=== PATIENT | male | born 2000 | race Caucasian/White ===

== ENCOUNTER 2018-03-29 11:55 | Emergency (ER) | payer BC, OTHER ==
[2018-03-29 12:15] VITALS: BP 133/71
--- NOTE | 2018-03-29 13:02 | UC ---
General HPI - HPI Summary HPI Summary: pt is c/o "recurrent chest pains" for 3-4 weeks. it occurs at random but he notes it most with laughing. he describes it as "sharp" and brief. he denies any hx of illness or injury. there is no associated fever, sweating, sob or exertional component. he denies any abdominal pain. no travel hx. there is no family hx of aneurysms. he denies any drug use. no current s/s's at time of exam. - History of Current Complaint Chief Complaint: UCChestPain Stated Complaint: RECURRING CHEST PAINS X 2 WKS Time Seen by Provider: 03/29/18 12:55 Hx Obtained From: Patient, Family/Sales Promotion Director Pain Intensity: 1 Associated Signs & Symptoms: Negative: Fever - Allergy/Home Medications Allergies/Adverse Reactions: Allergies Allergy/AdvReac Type Severity Reaction Status Date / Time amoxicillin Allergy Hives Verified 03/29/18 12:11 bee venom protein (honey bee) Allergy Hives and Verified 03/29/18 12:11 Swelling Sulfa (Sulfonamide Allergy Hives Verified 03/29/18 12:11 Antibiotics) Home Medications: Home Medications EPINEPHrine [Epipen 2-Derek] 0.3 mg IM SEE INSTRUCTIONS PRN 03/29/18 [History Confirmed 03/29/18] PMH/Surg Hx/FS Hx/Imm Hx Previously Healthy: Yes - Surgical History Surgical History: None - Family History Known Family History: Positive: Hypertension - Social History Occupation: Employed Part-time, Student Lives: With Family Alcohol Use: Rare Substance Use Type: None Smoking Status (MU): Never Smoked Tobacco - Immunization History Vaccination Up to Date: Yes Review of Systems Constitutional: Negative Skin: Negative Eyes: Negative ENT: Negative Respiratory: Negative Cardiovascular: Chest Pain Gastrointestinal: Negative Genitourinary: Negative Motor: Negative Neurovascular: Negative Musculoskeletal: Negative Neurological: Negative Psychological: Negative Is Patient Immunocompromised?: No All Other Systems Reviewed And Are Negative: Yes Physical Exam Triage Information Reviewed: Yes Appearance: Well-Appearing Vital Signs: Initial Vital Signs Temp 97.7 F 03/29/18 12:08 Pulse 62 03/29/18 12:08 Resp 16 03/29/18 12:08 BP 133/71 03/29/18 12:08 Pulse Ox 100 03/29/18 12:08 Vital Signs Reviewed: Yes Eyes: Positive: Conjunctiva Clear ENT: Positive: Pharynx normal, TMs normal. Negative: Nasal congestion, Nasal drainage Neck: Positive: Supple, Nontender, No Lymphadenopathy Respiratory: Positive: Chest non-tender, Lungs clear, Normal breath sounds, No respiratory distress Cardiovascular: Positive: RRR, No Murmur, Pulses Normal Abdomen Description: Positive: Nontender, No Organomegaly, Soft Bowel Sounds: Positive: Present Musculoskeletal: Positive: ROM Intact, No Edema, Other: - No calf tenderness or cords. Neurological: Positive: Alert Psychological: Positive: Age Appropriate Behavior Skin Exam: Normal Skin: Negative: rashes Diagnostics - Radiology No standard instances Radiology Interpretation Completed By: Radiologist - CXR=IMPRESSION: NO EVIDENCE FOR ACTIVE CARDIOPULMONARY DISEASE. - EKG Cardiac Rate: Bradycardia Cardiac Rhythm: Sinus: Normal Ectopy: None ST Segment: Normal Course/Dx - Course Course Of Treatment: EKG AND CXR ARE UNREMARKABLE. NO RISK FOR PREMATURE ACS. NO CONCERN FOR PE AND NO CM, INFILTRATE OR PTX ON CXR. NO C/W PERICARDIAITIS. NEED FOR CLOSE F/U PCP AND GO TO ER FOR ANY WORSENING. - Differential Dx - Multi-Symptom Provider Diagnoses: Episodic chest pain Discharge - Sign-Out/Discharge Documenting (check all that apply): Patient Departure All imaging exams completed and their final reports reviewed: Yes - Discharge Plan Condition: Stable Disposition: HOME Patient Education Materials: Chest Pain (ED) Referrals: Negro Azul MD [Primary Care Provider] - As Soon As Possible Additional Instructions: GO TO THE ER FOR ANY WORSENING - Billing Disposition and Condition Condition: STABLE Disposition: Home - Attestation Statements Provider Attestation: Per institutional requirements, I have reviewed the chart, however, I was not consulted specifically or made aware of this patient by the midlevel provider. I did not personally evaluate, interact with , or disposition this patient.
--- NOTE | 2018-03-29 13:39 | RAD ---
INDICATION: Sharp chest pain. COMPARISON: There are no relevant prior studies available for comparison. TECHNIQUE: Dual-energy PA and lateral views of the chest were obtained. FINDINGS: The heart is within normal limits in size. Mediastinal and hilar contours appear within normal limits. The lungs are clear. No pneumothorax or pleural effusion is seen. IMPRESSION: NO EVIDENCE FOR ACTIVE CARDIOPULMONARY DISEASE.
== END 2018-03-29 14:08 | disposition home or self-care (01) ==
LOC: UCCORT 11:55
DX: R07.89 Other chest pain (principal); R00.1 Bradycardia, unspecified; Z88.1 Allergy status to other antibiotic agents; Z91.030 Bee allergy status
CPT/HCPCS: 71046; 93005; 99211; G0463

== ENCOUNTER 2018-06-13 10:03 | Emergency (ER) | payer BC ==
[2018-06-13 11:02] VITALS: BP 134/69
--- NOTE | 2018-06-13 11:36 | UC ---
Throat Pain/Nasal Camacho HPI - HPI Summary HPI Summary: Pt presents c/o sudden onset of ST and nasal congestion x 3 days. - History of Current Complaint Chief Complaint: UCGeneralIllness Stated Complaint: ST Time Seen by Provider: 06/13/18 11:14 Hx Obtained From: Patient Onset/Duration: Sudden Onset, Lasting Days, Still Present Severity: Mild Pain Intensity: 4 Cough: None Associated Signs & Symptoms: Positive: Dysphagia - Epiglottits Risk Factors Epiglottis Risk Factors: Sudden Onset - Allergies/Home Medications Allergies/Adverse Reactions: Allergies Allergy/AdvReac Type Severity Reaction Status Date / Time amoxicillin Allergy Hives Verified 03/29/18 12:11 bee venom protein (honey bee) Allergy Hives and Verified 03/29/18 12:11 Swelling Sulfa (Sulfonamide Allergy Hives Verified 03/29/18 12:11 Antibiotics) PMH/Surg Hx/FS Hx/Imm Hx Previously Healthy: Yes - Surgical History Surgical History: None - Family History Known Family History: Positive: Hypertension - Social History Occupation: Student Lives: With Family Alcohol Use: Rare Substance Use Type: None Smoking Status (MU): Never Smoked Tobacco Have You Smoked in the Last Year: No - Immunization History Vaccination Up to Date: Yes Review of Systems All Other Systems Reviewed And Are Negative: Yes Constitutional: Positive: Fever - subjective, Fatigue Skin: Positive: Negative ENT: Positive: Sore Throat, Sinus Congestion Respiratory: Positive: Negative Cardiovascular: Positive: Negative Gastrointestinal: Positive: Negative Genitourinary: Positive: Negative Motor: Positive: Negative Neurovascular: Positive: Negative Musculoskeletal: Positive: Negative Neurological: Positive: Negative Psychological: Positive: Negative Is Patient Immunocompromised?: No Physical Exam Triage Information Reviewed: Yes Appearance: Ill-Appearing Vital Signs: Initial Vital Signs Temp 98.0 F 06/13/18 10:59 Pulse 80 06/13/18 10:59 Resp 16 06/13/18 10:59 BP 134/69 06/13/18 10:59 Pulse Ox 100 06/13/18 10:59 Vital Signs Reviewed: Yes Eye Exam: Normal ENT: Positive: Pharyngeal erythema Dental Exam: Normal Neck exam: Normal Respiratory Exam: Normal Cardiovascular Exam: Normal Musculoskeletal Exam: Normal Neurological Exam: Normal Psychological Exam: Normal Skin Exam: Normal Diagnostics - Laboratory Diagnostic Studies Completed/Ordered: rapid flu: negative. rapid strep: negative. Pt refused mono testing Throat Pain/Nasal Course/Dx - Differential Dx/Diagnosis Differential Diagnosis/HQI/PQRI: Mononucleosis, Pharyngitis, Tonsillitis Provider Diagnosis: Viral syndrome, Sore throat Discharge - Sign-Out/Discharge Documenting (check all that apply): Patient Departure All imaging exams completed and their final reports reviewed: No Studies - Discharge Plan Condition: Stable Disposition: HOME Patient Education Materials: Viral Syndrome (ED) Referrals: Negro Azul MD [Primary Care Provider] - If Needed - Billing Disposition and Condition Condition: STABLE Disposition: Home
== END 2018-06-13 12:11 | disposition home or self-care (01) ==
LOC: UCCORT 10:03
DX: B34.9 Viral infection, unspecified (principal); J02.9 Acute pharyngitis, unspecified; Z88.0 Allergy status to penicillin; Z88.1 Allergy status to other antibiotic agents
CPT/HCPCS: 87651; 99211; G0463